=== PATIENT | female | born 1970 | race Caucasian/White ===

== ENCOUNTER 2017-02-23 12:41 | Emergency (ER) | payer OTHER ==
[2017-02-23 12:46] VITALS: BP 137/95; PULSE 58; TEMP 97.7; BMI 24.7
--- NOTE | 2017-02-23 13:24 | PDOC ---
History of Present Illness - General History Source: Patient Exam Limitations: No Limitations - History of Present Illness Initial Comments: 02/23/17 13:28 The patient is a 46-year-old woman with a past medical history of ovarian cysts and a past surgical history of a cholecystectomy who presents to the emergency department via walk-in for further evaluation of abdominal pain. No trauma, strenuous activity and fall. She states that she was in her usual state of health when she started to experience localized abdominal pain over the left lower quadrant. She states that her pain has remained constant since onset and she feels as if her abdomen is distended. She reports associated symptoms of nausea and vomiting, that occurred this morning. No blood/bilious appearing episode. She states that her pain is similar to when she has to undergo her cholecystectomy. She underwent a colonoscopy earlier this year which was within normal limits, as per patient. No fever, chills, generalized weakness. No chest pain, lightheadedness, dizziness, visual changes, headaches. No diarrhea., constipation, dysuria, urinary frequency, flank pain. Allergies: No Known Drug Allergies Past Surgical History: Cholecystectomy Social History: No tobacco, EtOH and recreational drug use. Primary Care Physician: <Linnea Velasquez - Last Filed: 02/23/17 13:30> <Lukasz Shirley - Last Filed: 02/23/17 17:17> <Dulce Vu - Last Filed: 02/23/17 20:52> - General Chief Complaint: Pain Stated Complaint: ABD PAIN Time Seen by Provider: 02/23/17 13:09 Past History <Linnea Velasquez - Last Filed: 02/23/17 13:30> - Surgical History Cholecystectomy: Yes - Immunization History Immunization Up to Date: Yes - Psycho/Social/Smoking Cessation Hx Anxiety: No Suicidal Ideation: No Smoking History: Never smoked Have you smoked in the past 12 months: No Information on smoking cessation initiated: No Hx Alcohol Use: No Drug/Substance Use Hx: No Substance Use Type: None <Lukasz Shirley - Last Filed: 02/23/17 17:17> <Dulce Vu - Last Filed: 02/23/17 20:52> - Past Medical History Allergies/Adverse Reactions: Allergies Allergy/AdvReac Type Severity Reaction Status Date / Time No Known Allergies Allergy Verified 02/23/17 12:43 Review of Systems - Review of Systems Constitutional: No: Chills, Fever Respiratory: No: Shortness of Breath Cardiac (ROS): No: Chest Pain ABD/GI: Yes: See HPI, Vomiting. No: Diarrhea : No: Dysuria, Frequency All Other Systems: Reviewed and Negative <Lukasz Shirley - Last Filed: 02/23/17 17:17> *Physical Exam - Vital Signs Last Vital Signs Temp Pulse Resp BP Pulse Ox 97.7 F 58 L 18 137/95 100 02/23/17 12:43 02/23/17 12:43 02/23/17 12:43 02/23/17 12:43 02/23/17 12:43 - Physical Exam Comments: 02/23/17 13:28 GENERAL: The patient is awake, alert, and fully oriented, in no acute distress. HEAD: Normal with no signs of trauma. EYES: Pupils equal, round and reactive to light, extraocular movements intact, sclera anicteric, conjunctiva clear with no pallor. ENT: Ears normal, nares patent, oropharynx clear without exudates. Moist mucous membranes. NECK: Normal range of motion, supple without lymphadenopathy, JVD, or masses. LUNGS: Breath sounds equal, clear to auscultation bilaterally. No wheeze/ crackles. HEART: Regular rate and rhythm, normal S1 and S2 without murmur or rub. ABDOMEN: Slight referred rebound to left lower quadrant. There is some tenderness with guarding at the left lower quadrant and suprapubic region. Soft. Nondistended. Decreased bowel sounds. No guarding or rebound. No palpable masses. No hepatosplenomegaly. EXTREMITIES: Normal range of motion, no edema. No clubbing or cyanosis. No cords, erythema, or tenderness. NEUROLOGICAL: Cranial nerves II through XII grossly intact. Normal speech, normal gait. PSYCH: Normal mood, normal affect. SKIN: Warm, Dry, normal turgor, no rashes or lesions noted. <Linnea Velasquez - Last Filed: 02/23/17 13:30> - Vital Signs Last Vital Signs Temp Pulse Resp BP Pulse Ox 97.7 F 58 L 18 137/95 100 02/23/17 12:43 02/23/17 12:43 02/23/17 12:43 02/23/17 12:43 02/23/17 12:43 <Lukasz Shirley - Last Filed: 02/23/17 17:17> - Vital Signs Last Vital Signs Temp Pulse Resp BP Pulse Ox 97.7 F 58 L 18 137/95 100 02/23/17 12:43 02/23/17 12:43 02/23/17 12:43 02/23/17 12:43 02/23/17 12:43 <Dulce Vu - Last Filed: 02/23/17 20:52> ED Treatment Course - LABORATORY CBC & Chemistry Diagram: 02/23/17 14:30 02/23/17 14:30 <Lukasz Shirley - Last Filed: 02/23/17 17:17> - LABORATORY CBC & Chemistry Diagram: 02/23/17 14:30 02/23/17 14:30 - ADDITIONAL ORDERS Additional order review: Laboratory Results 02/23/17 02/23/17 02/23/17 14:30 14:10 14:05 Sodium 139 Potassium 3.9 Chloride 101 Carbon Dioxide 27 Anion Gap 11 BUN 11 D Creatinine 0.6 Creat Clearance w eGFR > 60 Random Glucose 112 H Calcium 8.8 Total Bilirubin 0.2 D AST 20 ALT 24 Alkaline Phosphatase 100 Total Protein 7.7 Albumin 3.6 Lipase 118 Urine Color Ltyellow Urine Appearance Clear Urine pH 7.0 Ur Specific [place] 1.015 Urine Protein Negative Urine Glucose (UA) Negative Urine Ketones Negative Urine Blood Negative Urine Nitrite Negative Urine Bilirubin Negative Urine Urobilinogen Negative Ur Leukocyte Esterase Negative Urine HCG, Qual Negative 02/23/17 14:30 RBC 4.78 MCV 73.4 L MCHC 32.4 RDW 19.0 H D MPV 7.6 Neutrophils % 86.9 H Lymphocytes % 9.9 D Monocytes % 2.7 L Eosinophils % 0.2 D Basophils % 0.3 - Medications Given in the ED: ED Medications Discontinued Medications Generic Name Dose Route Start Last Admin Trade Name Freq PRN Reason Stop Dose Admin Sodium Chloride 1,000 mls @ 1,000 mls/hr 02/23/17 13:32 02/23/17 14:45 Normal Saline - IV 02/23/17 14:31 1,000 mls/hr ONCE ONE Administration Levofloxacin 500 mg 02/23/17 19:43 02/23/17 20:33 Levaquin - PO 02/23/17 19:44 500 mg ONCE ONE Administration Metronidazole 500 mg 02/23/17 19:43 02/23/17 20:33 Flagyl - PO 02/23/17 19:44 500 mg ONCE ONE Administration Morphine Sulfate 4 mg 02/23/17 13:32 02/23/17 14:45 Morphine Injection - IVPUSH 02/23/17 13:33 4 mg ONCE ONE Administration Ondansetron HCl 4 mg 02/23/17 13:32 02/23/17 14:46 Zofran Injection IVPB 02/23/17 13:33 4 mg ONCE ONE Administration <Dulce Vu - Last Filed: 02/23/17 20:52> Medical Decision Making - Medical Decision Making 02/23/17 13:49 A portion of this note was documented by scribe services under my direction. I have reviewed the details of the note, within reason, and agree with the documentation with the following case summary and management plan written by me. 46-year-old female with no severe past medical history other than ovarian cysts and cholecystectomy presents with several days of constant left lower quadrant pain worsened over the last 24 hours and associated with an episode of nonbloody nonbilious vomiting today. No fevers or chills, no [employer] complaints, no urinary complaints. Had a colonoscopy in November that was reportedly within normal limits. On review of the medical record,the CAT scan in August 2016 noted diverticulosis. Afebrile. Left lower quadrant tenderness with guarding and referred rebound, otherwise soft and nondistended 46-year-old female with left lower quadrant pain, question diverticulitis, rule out UTI. Less likely [employer] pathology. Labs, urinalysis Pain control, nausea control IV fluids CT of the abdomen and pelvis Reassess and dispo accordingly 02/23/17 16:12 White blood cell count 10 with slight left shift, chemistries and urinalysis are within normal limits. Awaiting CAT scan, will dispo accordingly. 02/23/17 17:17 CTAP still pending. Pt signed out to oncoming ED physician to f/u the CT results , reassess the patient, and dispo accordingly. <Lukasz Shirley - Last Filed: 02/23/17 17:17> *DC/Admit/Observation/Transfer - Attestations Scribe Attestion: 02/23/17 13:28 Documentation prepared by Linnea Velasquez, acting as medical illustrator for Lukasz Shirley MD. <Linnea Velasquez - Last Filed: 02/23/17 13:30> <Lukasz Shirley - Last Filed: 02/23/17 17:17> <Dulce Vu - Last Filed: 02/23/17 20:52> Diagnosis at time of Disposition: Abdominal pain, left lower quadrant, Colitis - Discharge Dispostion Disposition: HOME Condition at time of disposition: Stable - Patient Instructions Printed Discharge Instructions: DI for Colitis Additional Instructions: PLEASE FOLLOWUP WITH YOUR PHYSICIAN
[2017-02-23] MEDS ORDERED: morphine CARPU-JECT 4 MG/1 ML DISP.SYRIN IVPUSH ONE (13:32)
[2017-02-23] MEDS ORDERED: ONDANSETRON 4 MG/2 ML VIAL IVPB ONE (13:32)
[2017-02-23] MEDS ORDERED: SODIUM CHLORIDE 1,000 ML IV ONE (13:32)
[2017-02-23 14:29] LABS: URINE APPEARANCE CLEAR; URINE BILIRUBIN NEGATIVE (NEGATIVE); URINE BLOOD NEGATIVE (NEGATIVE); URINE COLOR LTYELLOW; URINE GLUCOSE (UA) NEGATIVE (NEGATIVE); URINE KETONE NEGATIVE (NEGATIVE); URINE LEUK ESTERASE NEGATIVE (NEGATIVE); URINE NITRITE NEGATIVE (NEGATIVE); URINE PROTEIN NEGATIVE (NEGATIVE); URINE UROBILINOGEN NEGATIVE E.U./dl (0.2-1.0)
[2017-02-23] MEDS ORDERED: ONDANSETRON 4 MG/2 ML VIAL ONE (14:36)
[2017-02-23] MEDS ORDERED: morphine CARPU-JECT 4 MG/1 ML DISP.SYRIN ONE (14:37)
[2017-02-23 14:39] LABS: BASOPHIL 0.3 % (0-2.0); EOSINOPHIL 0.2 % (0-4.5); MCH 23.8 pg (25.7-33.7); MCHC 32.4 g/dl (32.0-36.0); MEAN CELL VOLUME 73.4 fl (80-96); MEAN PLT VOLUME 7.6 fl (7.5-11.1); NEUTROPHILS 86.9 % (42.8-82.8); PLATELET COUNT 277 K/MM3 (134-434)
[2017-02-23 15:03] LABS: ALBUMIN 3.6 g/dl (3.4-5.0); ANION GAP 11 (8-16); CALCIUM 8.8 mg/dL (8.5-10.1); CO2 27 mmol/L (21-32); GLUCOSE,RANDOM 112 mg/dL (74-106); SGOT/AST 20 U/L (15-37)
[2017-02-23 15:06] LABS: ALK PHOS 100 U/L (45-117); BILIRUBIN,TOTAL 0.2 mg/dL (0.2-1.0); COCKROFT - GAULT 114.9455; CREATININE 0.6 mg/dL (0.55-1.02); SGPT/ALT 24 U/L (12-78); TOT PROT 7.7 g/dl (6.4-8.2)
[2017-02-23] MEDS ORDERED: metroNIDAZOLE 500 MG TABLET PO ONE (19:43)
[2017-02-23] MEDS ORDERED: LEVOFLOXACIN 500 MG TABLET (FP) PO ONE (19:43)
[2017-02-23] MEDS ORDERED: LEVOFLOXACIN 500 MG TABLET (FP) ONE (20:34)
[2017-02-23] MEDS ORDERED: metroNIDAZOLE 250 MG TABLET ONE (20:34)
== END 2017-02-23 21:25 | disposition home or self-care (01) ==
LOC: JER 12:41
PROC: 3E033NZ Introduction of Analgesics, Hypnotics, Sedatives into Peripheral Vein, Percutaneous Approach (ICD-10-PCS; principal; 2017-02-23)
PROC: 3E033GC Introduction of Other Therapeutic Substance into Peripheral Vein, Percutaneous Approach (ICD-10-PCS; 2017-02-23)
DX: K52.9 Noninfective gastroenteritis and colitis, unspecified (principal)
CPT/HCPCS: 36415; 74177-TC; 80053; 81003; 83690; 84703; 85025; 96374; 96375; 99282-25

== ENCOUNTER 2017-03-13 21:38 | Emergency (ER) | payer OTHER ==
[2017-03-13 21:44] VITALS: BP 140/86; PULSE 61; TEMP 98.3; BMI 35.1
--- NOTE | 2017-03-13 22:32 | PDOC ---
History of Present Illness - General Chief Complaint: Pain Stated Complaint: PAIN Time Seen by Provider: 03/13/17 22:08 History Source: Patient Exam Limitations: No Limitations - History of Present Illness Travel History: No Initial Comments: 03/13/17 22:31 46-year-old female presents to the emergency department with her daughter complaining of left lower quadrant abdominal discomfort 3 weeks. Pain is described as 8/10 sharp nonradiating intermittent discomfort. The pain is exacerbated on movement and there are no alleviating factors. The pain is associated with some nausea but no vomiting, no fever, chills, chest pain, shortness of breath, flank pains, urinary symptoms: Frequency/urgency/hesitancy , hematuria. Timing/Duration: reports: intermittent Quality: reports: mild Abdominal Pain Onset Location: reports: LLQ Pain Radiation: reports: no radiation Past History - Past Medical History Allergies/Adverse Reactions: Allergies Allergy/AdvReac Type Severity Reaction Status Date / Time No Known Allergies Allergy Verified 02/23/17 12:43 Home Medications: Ambulatory Orders Levofloxacin [Levaquin -] 500 mg PO DAILY #7 tablet 02/23/17 Metronidazole [Flagyl -] 250 mg PO TID #21 tablet 02/23/17 Anemia: No Asthma: No Cancer: No Cardiac Disorders: No CVA: No COPD: No DVT: No Dementia: No Diabetes: No Dialysis: No GI Disorders: No Disorders: No HTN: No Hypercholesterolemia: No HIV: No Kidney Stones: No Liver Disease: No Psychiatric Problems: No Seizures: No Thyroid Disease: No Lung CA: No - Surgical History Cholecystectomy: Yes - Immunization History Immunization Up to Date: Yes - Psycho/Social/Smoking Cessation Hx Anxiety: No Suicidal Ideation: No Smoking History: Never smoked Have you smoked in the past 12 months: No Information on smoking cessation initiated: No Hx Alcohol Use: No Drug/Substance Use Hx: No Substance Use Type: None Review of Systems - Review of Systems Able to Perform ROS?: Yes Comments:: 03/13/17 22:32 CONSTITUTIONAL: Absent: fever, chills, diaphoresis, generalized weakness, malaise, loss of appetite HEENT: Absent: rhinorrhea, nasal congestion, throat pain, throat swelling, difficulty swallowing, mouth swelling, ear pain, eye pain, visual Changes CARDIOVASCULAR: Absent: chest pain, loss of consciousness, palpitations, irregular heart rate, peripheral edema RESPIRATORY: Absent: cough, shortness of breath, dyspnea with exertion, orthopnea, wheezing, stridor, hemoptysis GASTROINTESTINAL: +LLQ pain Absent: abdominal distension, nausea, vomiting, diarrhea, constipation, melena, hematochezia GENITOURINARY: Absent: dysuria, frequency, urgency, hesitancy, hematuria, flank pain, genital pain MUSCULOSKELETAL: Absent: myalgia, arthralgia, joint swelling SKIN: Absent: rash, itching, pallor HEMATOLOGIC/IMMUNOLOGIC: Absent: easy bleeding, easy bruising, lymphadenopathy, frequent infections ENDOCRINE: Absent: unexplained weight gain, unexplained weight loss, heat intolerance, cold intolerance NEUROLOGIC: Absent: headache, focal weakness or paresthesias, dizziness, unsteady gait, seizure, mental status changes, bladder or bowel incontinence PSYCHIATRIC: Absent: anxiety, depression, suicidal or homicidal ideation, hallucinations. Is the patient limited [place]ian proficient: No *Physical Exam - Vital Signs Last Vital Signs Temp Pulse Resp BP Pulse Ox 98.3 F 61 18 140/86 100 03/13/17 21:42 03/13/17 21:42 03/13/17 21:42 03/13/17 21:42 03/13/17 21:42 - Physical Exam Comments: 03/13/17 22:32 GENERAL: Well developed, well nourished. Awake and alert. No acute distress. HEENT: Normocephalic, atraumatic. PERRLA, EOMI. No conjunctival pallor. Sclera are non- icteric. Moist mucous membranes. Oropharynx is clear. NECK: Supple. Full ROM. No JVD. Carotid pulses 2+ and symmetric, without bruits. No thyromegaly. No lymphadenopathy. CARDIOVASCULAR: Regular rate and rhythm. No murmurs, rubs, or gallops. Distal pulses are 2+ and symmetric. PULMONARY: No evidence of respiratory distress. Lungs clear to auscultation bilaterally. No wheezing, rales or rhonchi. ABDOMINAL: LLQ pain on palp Soft. Non-distended. No rebound or guarding. No organomegaly. Normoactive bowel sounds. MUSCULOSKELETAL Normal range of motion at all joints. No bony deformities or tenderness. No CVA tenderness. EXTREMITIES: No cyanosis. No clubbing. No edema. No calf tenderness. SKIN: Warm and dry. Normal capillary refill. No rashes. No jaundice. NEUROLOGICAL: Alert, awake, appropriate. Cranial nerves 2-12 intact. No deficits to light touch and temperature in face, upper extremities and lower extremities. No motor deficits in the in face, upper extremities and lower extremities. Normoreflexic in the upper and lower extremities. Normal speech. Toes are down- going bilaterally. Gait is normal without ataxia. PSYCHIATRIC: Cooperative. Good eye contact. Appropriate mood and affect. ED Treatment Course - LABORATORY CBC & Chemistry Diagram: 03/13/17 22:45 03/13/17 22:45 - RADIOLOGY Radiograph Interpretation: 03/14/17 03:49 CAT scan of abdomen and pelvis with by mouth and IV contrast shows: Endometrial thickening and fluid with a endometrial soft tissue mass. This reflects segmental fibroid or endometrial polyp. Endometrial neoplasm is a differential consideration. Progress Note - Progress Note Progress Note: 0250hrs: Dr. Oreilly/radiologist swelling to uterus. Endometrial mass *DC/Admit/Observation/Transfer Diagnosis at time of Disposition: Abdominal pain Qualifiers: Abdominal location: lower abdomen, unspecified Qualified Code(s): R10.30 - Lower abdominal pain, unspecified - Discharge Dispostion Disposition: HOME Condition at time of disposition: Stable Admit: No - Referrals Referrals: STAFF,NOT ON [Primary Care Provider] - Lyn Fair MD [Staff Physician] - - Patient Instructions Printed Discharge Instructions: DI for Abdominal Pain-Adult Additional Instructions: You had a CAT scan of your abdomen and pelvis with contrast that you took orally and through the intravenous. The preliminary impression shows endometrial thickening and fluid with a endometrial soft tissue mass. This reflected a segmental fibroid or endometrial polyp. [place] neoplasm is a differential consideration. Please follow-up with your electrical lineworker for follow-up ultrasound. Return back to the emergency department for severe/persistent or worsening symptoms.
[2017-03-13] MEDS ORDERED: SODIUM CHLORIDE 1,000 ML IV STA (22:39)
[2017-03-13] MEDS ORDERED: morphine CARPU-JECT 2 MG/1 ML DISP.SYRIN IVPUSH ONE (22:39)
[2017-03-13 23:11] LABS: BASOPHIL 0.4 % (0-2.0); EOSINOPHIL 2.2 % (0-4.5); MCH 23.8 pg (25.7-33.7); MCHC 32.4 g/dl (32.0-36.0); MEAN CELL VOLUME 73.7 fl (80-96); MEAN PLT VOLUME 7.8 fl (7.5-11.1); NEUTROPHILS 64.2 % (42.8-82.8); PLATELET COUNT 341 K/MM3 (134-434); RDW 18.9 % (11.6-15.6); WHITE BLOOD COUNT 7.6 K/mm3 (4.0-10.0)
[2017-03-13 23:42] LABS: ALK PHOS 112 U/L (45-117); ANION GAP 10 (8-16); BILIRUBIN,TOTAL 0.5 mg/dL (0.2-1.0); CALCIUM 8.9 mg/dL (8.5-10.1); CO2 26 mmol/L (21-32); CREATININE 0.5 mg/dL (0.55-1.02); GLUCOSE,RANDOM 83 mg/dL (74-106); SGOT/AST 28 U/L (15-37); SGPT/ALT 28 U/L (12-78); TOT PROT 7.5 g/dl (6.4-8.2)
[2017-03-13] MEDS ORDERED: morphine CARPU-JECT 2 MG/1 ML DISP.SYRIN ONE (23:49)
[2017-03-14 00:03] LABS: URINE APPEARANCE CLEAR; URINE BILIRUBIN NEGATIVE (NEGATIVE); URINE COLOR STRAW; URINE GLUCOSE (UA) NEGATIVE (NEGATIVE); URINE KETONE NEGATIVE (NEGATIVE); URINE LEUK ESTERASE NEGATIVE (NEGATIVE); URINE NITRITE NEGATIVE (NEGATIVE); URINE PROTEIN NEGATIVE (NEGATIVE); URINE UROBILINOGEN NEGATIVE E.U./dl (0.2-1.0)
[2017-03-14 00:04] LABS: URINE BLOOD 2+ (NEGATIVE)
[2017-03-14 00:06] LABS: URINE RBC 5 /hpf (0-3); URINE WBC <1 /hpf (3-5)
== END 2017-03-14 04:10 | disposition home or self-care (01) ==
LOC: JER 21:38 → SUPCPDRO 21:38 → JER 03-14 04:10
PROC: 3E033NZ Introduction of Analgesics, Hypnotics, Sedatives into Peripheral Vein, Percutaneous Approach (ICD-10-PCS; principal; 2017-03-13)
PROC: 3E0337Z Introduction of Electrolytic and Water Balance Substance into Peripheral Vein, Percutaneous Approach (ICD-10-PCS; 2017-03-13)
DX: R10.32 Left lower quadrant pain (principal)
CPT/HCPCS: 36415; 74177-TC; 80053; 81003; 81015; 84703; 85025; 99282-25